=== PATIENT | female | born 1965 | race Two or more races ===

== ENCOUNTER 2020-04-08 00:31 | Inpatient (IN) | payer SELFPAY ==
[~2020-04-08] VITALS: Ht 157.5 cm; Wt 104.9 kg
[2020-04-08 04:14] LABS: Basophils # (auto) 0 10 ^3/uL (0-0.2); Basophils % (auto) 0.3 % (0.0-2.0); Eosinophils # (auto) 0 10 ^3/uL (0-0.8); Eosinophils % (auto) 0.4 % (0.0-7.0); Hematocrit 43.4 % (36.0-46.0); Hemoglobin 14.5 g/dL (12.2-16.2); Lymphocytes # (auto) 0.9 10 ^3/uL (0.4-5.4); Lymphocytes % (auto) 6.8 % (10.0-50.0); Mean Corpuscular Hemoglobin 30.9 pg (28.0-32.0); Mean Corpuscular Hgb Conc. 33.3 g/dL (32.0-36.0); Mean Corpuscular Volume 92.6 fL (80.0-100.0); Monocytes # (auto) 0.7 10 ^3/uL (0-1.3); Neutrophils # (auto) 10.9 10 ^3/uL (1.6-8.6); Neutrophils % (auto) 86.5 % (37.0-80.0); Platelet Count (auto) 335 10^3/uL (140-450); Red Blood Cells 4.69 10^6/uL (4.0-5.20); Red Cell Distribution Width 13.2 % (11.8-14.3); White Blood Cell 12.5 10^3/uL (4.4-10.8)
[2020-04-08 04:31] LABS: Calcium 9.2 mg/dL (8.5-10.1); Potassium 3.9 mmol/L (3.5-5.1)
[2020-04-08] MEDS ORDERED: methylPREDNISolone SOD SUCC 125 MG/2 ML VL ONE (04:36)
[2020-04-08 04:37] LABS: Albumin 3.9 g/dL (3.4-5.0); BUN/Creatinine Ratio 10.2; Bilirubin, Total 0.5 mg/dL (0.2-1.0)
[2020-04-08] MEDS ORDERED: IPRATROPIUM BROM 0.5 MG/2.5ML INH SOL NEB ONE (04:45)
[2020-04-08] MEDS ORDERED: methylPREDNISolone SOD SUCC 125 MG/2 ML VL IV ONE ×2 (04:45→15:45)
[2020-04-08] MEDS ORDERED: ALBUTEROL SULF 2.5 MG/0.5ML(0.5%) NEB SOLN NEB ONE (04:45)
[2020-04-08] MEDS ORDERED: AZITHROMYCIN 500MG/ 250ML 250 ML IV ONE (07:30)
[2020-04-08] MEDS ORDERED: cefTRIAXone 1GM/50ML D5W 50 ML IV ONE (07:30)
[2020-04-08] MEDS ORDERED: MAGNESIUM SULFATE 1GM/100ML 100 ML IV ONE (07:30)
[2020-04-08] MEDS ORDERED: IOHEXOL 350 MG/ML 100ML IJ ONE (08:13)
[2020-04-08] MEDS ORDERED: NITROGLYCERIN 0.4 MG SL TAB SL PRN (10:00)
[2020-04-08] MEDS ORDERED: HYDROcodone-ACET 5/325MG TAB PO PRN (10:00)
[2020-04-08] MEDS ORDERED: MORPHINE SULF INJ 2 MG/ML SYRINGE 1ML IV PRN ×2 (10:00)
[2020-04-08] MEDS ORDERED: IPRATROPIUM BROM 0.5 MG/2.5ML INH SOL NEB PRN (10:15)
[2020-04-08] MEDS ORDERED: ALBUTEROL SULF 2.5 MG/0.5ML(0.5%) NEB SOLN NEB PRN (10:15)
[2020-04-08] MEDS ORDERED: ACET1CAP14 PO (10:36)
[2020-04-08] MEDS: FAMOTIDINE 20 MG TAB PO SCH (11:10)
[2020-04-08] MEDS: BUDESONIDE (INHALATION) 0.5 MG/2 ML NEB NEB SCH ×2 (11:28→21:32)
[2020-04-08] MEDS: IPRATROPIUM BROM 0.5 MG/2.5ML INH SOL NEB SCH ×2 (11:28→19:21)
[2020-04-08] MEDS: ALBUTEROL SULF 2.5 MG/0.5ML(0.5%) NEB SOLN NEB SCH ×2 (11:29→19:21)
[2020-04-08] MEDS ORDERED: SODIUM CHLORIDE 0.9% 1,000 ML IV ONE (13:15)
--- NOTE | 2020-04-08 21:55 | NUR ---
Telemetry admit from ER MEHRAN SAWYER admitted to Telemetry unit after NO SBAR received. Patient oriented to GENNA JUNIOR RN primary RN,[facility] ROOM [facility] and unit policies regarding patient care and visiting hours. Patient now on continuous telemetry monitoring, tele box #66 and telemetry reading on arrival to unit is SINUS TACH 108.BED LOCKED IN THE LOWEST POSITION, SIDE RAILS UP X2, CALL LIGHT WITHIN REACH. Patient placed on bedside oxygen 3L weighed by bedscale and encouraged to call if they need something. All questions and concerns addressed, patient verbalized understanding. ADMISSION VITALS 130/81 HR110 18RR 93% ON 3L OXYGEN 98.6 ORAL TEMPERATURE. NO DISTRESS/ SOB AT THIS TIME.
--- NOTE | 2020-04-08 22:00 | NUR ---
PATIENT COMPLAINS OF 3/10 THROBBING HEADACHE. TYLENOL ADMINISTERED PER DR ORDERS.
[2020-04-08] MEDS: ACETAMINOPHEN 500 MG TAB PO PRN (22:04)
[2020-04-08 23:23] VITALS: BP 130/81
[2020-04-09 04:15] VITALS: BP 174/87
[2020-04-09 04:20] VITALS: BP 119/64
--- NOTE | 2020-04-09 06:00 | NUR ---
HEART RATE 130 BPM, UPON ASSESSING PATIENT SHE IS WALKING AROUND HER ROOM WITH NO COMPLAINTS OF DISTRESS/SOB. ONCE RESTING IN BED HEART RATE BACK DOWN TO 105 BPM./
[2020-04-09 06:29] LABS: Basophils # (auto) 0 10 ^3/uL (0-0.2); Basophils % (auto) 0.1 % (0.0-2.0); Eosinophils # (auto) 0 10 ^3/uL (0-0.8); Hematocrit 40.2 % (36.0-46.0); Hemoglobin 13.5 g/dL (12.2-16.2); Lymphocytes % (auto) 5.2 % (10.0-50.0); Mean Corpuscular Hemoglobin 31.4 pg (28.0-32.0); Mean Corpuscular Hgb Conc. 33.5 g/dL (32.0-36.0); Mean Corpuscular Volume 93.7 fL (80.0-100.0); Monocytes # (auto) 0.9 10 ^3/uL (0-1.3); Monocytes % (auto) 4.7 % (0.0-12.0); Neutrophils # (auto) 16.7 10 ^3/uL (1.6-8.6); Platelet Count (auto) 315 10^3/uL (140-450); Red Blood Cells 4.29 10^6/uL (4.0-5.20); Red Cell Distribution Width 13.5 % (11.8-14.3); White Blood Cell 18.6 10^3/uL (4.4-10.8)
[2020-04-09 06:34] LABS: BUN/Creatinine Ratio 26.2; Calcium 9.1 mg/dL (8.5-10.1)
[2020-04-09] MEDS: IPRATROPIUM BROM 0.5 MG/2.5ML INH SOL NEB SCH ×4 (06:45→22:51)
[2020-04-09] MEDS: ALBUTEROL SULF 2.5 MG/0.5ML(0.5%) NEB SOLN NEB SCH ×4 (06:45→22:51)
--- NOTE | 2020-04-09 07:45 | NUR ---
CLOSING NOTE CARE ENDORSED TO DAY SHIFT RN. PATIENT RESTING IN THE LOW FOWLERS POSITION, NO SIGNS OF SOB/ DISTRESS AT THIS TIME.
[2020-04-09 09:00] VITALS: BP 110/61
[2020-04-09] MEDS: FAMOTIDINE 20 MG TAB PO SCH (09:31)
[2020-04-09] MEDS: ACETAMINOPHEN 500 MG TAB PO PRN ×3 (09:32→20:16)
[2020-04-09] MEDS ORDERED: methylPREDNISolone SOD SUCC 125 MG/2 ML VL IV SCH (10:00)
[2020-04-09] MEDS: cefTRIAXone 1GM/50ML D5W 50 ML IV SCH (10:41)
[2020-04-09] MEDS: BUDESONIDE (INHALATION) 0.5 MG/2 ML NEB NEB SCH ×2 (10:54→18:44)
[2020-04-09] MEDS: AZITHROMYCIN 500MG/ 250ML 250 ML IV SCH (11:38)
[2020-04-09 13:00] VITALS: BP 97/69
[2020-04-09 17:00] VITALS: BP 117/61
--- NOTE | 2020-04-09 18:59 | NUR ---
Patient's breathing non labored. Tolerated IV antibiotics. Complained of a headache and was given Tylenol and tolerated medications. Encouraged to continue coughing and deep breathing. Patient has no further complaints.
--- NOTE | 2020-04-09 19:40 | NUR ---
Opening Shift Note Assumed care of patient, awake and alert. Patient out of bed in the bathroom. No S/S of distress/SOB or pain. Patient on 4L NC. Safety measures maintained by keeping the bed locked in lowest position, 2 side rails up, personal items and call light within reach. Instructed on POC and to call for assist PRN, will continue to monitor for changes Q1hr and PRN.
[2020-04-09] MEDS: methylPREDNISolone SOD SUCC 40 MG/ML VL IV SCH (21:38)
--- NOTE | 2020-04-09 21:47 | NUR ---
Sputum culture sent to lab
[2020-04-09 22:00] VITALS: BP 108/72
--- NOTE | 2020-04-10 04:45 | NUR ---
Rapid Influenza and urine sent to lab.
[2020-04-10 05:37] VITALS: BP 118/68
[2020-04-10 05:48] LABS: Urine Bacteria FEW /hpf (None Seen); Urine Blood Negative /uL (Negative); Urine Mucus FEW (None Seen); Urine WBC 14 /hpf (0 - 5)
[2020-04-10 09:00] VITALS: BP 99/66
[2020-04-10] MEDS: BUDESONIDE (INHALATION) 0.5 MG/2 ML NEB NEB SCH ×2 (09:11→19:17)
[2020-04-10] MEDS: cefTRIAXone 1GM/50ML D5W 50 ML IV SCH (09:33)
[2020-04-10] MEDS: FAMOTIDINE 20 MG TAB PO SCH (10:07)
[2020-04-10] MEDS: AZITHROMYCIN 500MG/ 250ML 250 ML IV SCH (10:07)
[2020-04-10] MEDS: methylPREDNISolone SOD SUCC 40 MG/ML VL IV SCH ×2 (10:08→22:28)
[2020-04-10 12:00] VITALS: BP 97/57
[2020-04-10] MEDS: IPRATROPIUM BROM 0.5 MG/2.5ML INH SOL NEB SCH ×2 (12:37→19:18)
[2020-04-10] MEDS: ALBUTEROL SULF 2.5 MG/0.5ML(0.5%) NEB SOLN NEB SCH ×2 (12:37→19:17)
--- NOTE | 2020-04-10 16:55 | NUR ---
IV removal IV DC'd with sterile technique, catheter fully intact. Pressure dressing applied to site. Patient tolerated procedure well. Discharged with aftercare instructions per MD. NOTE: PATIENT IV SITE NOTED TO BE RED AND STARTING TO SWELL. IV insertion IV access obtained, via clean sterile technique by inserting 22 gauge catheter at left hand after 1 attempt. IV secured properly. No trauma to site. Patient tolerated procedure well.
[2020-04-10 17:03] VITALS: BP 100/59
--- NOTE | 2020-04-10 19:45 | NUR ---
Opening Shift Note Assumed care of patient, awake and alert. Patient sitting up in bed. No S/S of distress/SOB or pain. Patient on 4L NC. Safety measures maintained by keeping the bed locked in lowest position, 2 side rails up, personal items and call light within reach. Instructed on POC and to call for assist PRN, will continue to monitor for changes Q1hr and PRN.
[2020-04-10 22:00] VITALS: BP 105/61
[2020-04-11] MEDS: ALBUTEROL SULF 2.5 MG/0.5ML(0.5%) NEB SOLN NEB SCH ×3 (06:00→19:23)
[2020-04-11] MEDS: IPRATROPIUM BROM 0.5 MG/2.5ML INH SOL NEB SCH ×3 (06:00→19:23)
[2020-04-11 08:49] VITALS: BP 97/58
[2020-04-11] MEDS: cefTRIAXone 1GM/50ML D5W 50 ML IV SCH (09:00)
[2020-04-11] MEDS: FAMOTIDINE 20 MG TAB PO SCH (09:37)
[2020-04-11] MEDS: AZITHROMYCIN 500MG/ 250ML 250 ML IV SCH (09:37)
[2020-04-11] MEDS: methylPREDNISolone SOD SUCC 40 MG/ML VL IV SCH ×2 (09:37→22:07)
[2020-04-11] MEDS: BUDESONIDE (INHALATION) 0.5 MG/2 ML NEB NEB SCH ×2 (10:00→19:23)
--- NOTE | 2020-04-11 10:20 | NUR ---
Dr. Thayer at nurse station MD instructed this RN to place order for ABG on room air for home oxygen. Will implement new order and notify primary RN Colby.
--- NOTE | 2020-04-11 12:17 | NUR ---
Nutrition Assessment Notes Please refer to link for full assessment notes. Est Energy needs: 5265-2231 kcals (12-15 kcal/kgBW) Est Protein needs: 87-109 gms/day (0.8-1.0 gm/kgBW) Will continue to monitor and reassess prn. Addendum: 04/11/20 at [address] Amended: Links added.
[2020-04-11 13:00] VITALS: BP 101/58
--- NOTE | 2020-04-11 15:00 | NUR ---
SPECIMEN FOR IN HOUSE COVID OBTAINED AND BROUGHT TO THE LAB.
[2020-04-11 17:09] VITALS: BP 97/58
--- NOTE | 2020-04-11 17:13 | NUR ---
Assessment Patient is a 54-year-old female who is alert and oriented. Prior to admission patient lived home with family and functioned independently. Prior to admission patient could care for his own ADL's. Per Patient she will return home to her prior living arrangements post discharge and family will transport patient at anytime. Advised patient she will be refer to Zeke with [facility] who assist with [employer]. Per patient Zeke has been in contact with her and will provide him with the documentation that he has requested. Informed patient she has the right to participate in all discharge planning. Patient does not have an advance directive. Patient has been provided with an advanced directive. Patient verbalized understanding and agrees to discharge plan. Addendum: 04/11/20 at 1718 by EVANS JO Amended: Links added.
[2020-04-11 22:00] VITALS: BP 92/52
--- NOTE | 2020-04-12 04:56 | NUR ---
Sofiya Farrell. Requested cough medication for patient. Order verbalized and read back. See order history for order.
[2020-04-12 05:00] VITALS: BP 103/59
[2020-04-12] MEDS: guaiFENesin-DM 100/10mg/5ml SYR PO PRN ×3 (05:31→21:42)
[2020-04-12] MEDS: BUDESONIDE (INHALATION) 0.5 MG/2 ML NEB NEB SCH ×2 (06:46→19:45)
[2020-04-12] MEDS: ALBUTEROL SULF 2.5 MG/0.5ML(0.5%) NEB SOLN NEB SCH ×3 (06:46→19:45)
[2020-04-12] MEDS: IPRATROPIUM BROM 0.5 MG/2.5ML INH SOL NEB SCH ×3 (06:46→19:45)
--- NOTE | 2020-04-12 06:46 | NUR ---
Respiratory note: RECEIVED PATIENT ON 3L NC. PATIENT WAS IN NO RESPIRATORY DISTRESS. PATIENT WAS GIVEN TREATMENT AND PLACED BACK ON 3L NC. WILL CONTINUE TO MONITOR.
[2020-04-12] MEDS: cefTRIAXone 1GM/50ML D5W 50 ML IV SCH (08:37)
[2020-04-12 09:00] VITALS: BP 92/54
[2020-04-12] MEDS: AZITHROMYCIN 500MG/ 250ML 250 ML IV SCH (10:12)
[2020-04-12] MEDS: methylPREDNISolone SOD SUCC 40 MG/ML VL IV SCH ×2 (10:12→21:40)
[2020-04-12] MEDS: FAMOTIDINE 20 MG TAB PO SCH (10:12)
--- NOTE | 2020-04-12 10:50 | NUR ---
MD AT BEDSIDE DR. FLORES WAS IN TO SEE PATIENT AND MD RULED OUT PATIENT FOR COVID 19.
[2020-04-12 13:00] VITALS: BP 108/61
--- NOTE | 2020-04-12 13:16 | NUR ---
Respiratory note: Routine treatment. no respiratory distress noted. Will continue to monitor.
[2020-04-12 17:00] VITALS: BP 101/61
--- NOTE | 2020-04-12 17:30 | NUR ---
PATIENT CALLED AND WAS STATING THAT HER WILL BE COMING TO PICK HER UP. PATIENT STATED THAT THE O2 WILL BE DELIVERED AT THE [facility] AN AT HER HOME TODAY. FAXED PATIENT'S INFORMATION BEFORE AND WAS WAITING FOR THEM TO RESPOND. EXPLAINED TO PATIENT THAT THERE IS NO ORDER FOR DISCHARGE TODAY AND SHE WAS OKAY TO STAY OVERNIGHT AND WILL WAIT FOR MD TO DISCHARGE HER TOMORROW SHE NEEDED HER NEW PRESCRIPTIONS.
--- NOTE | 2020-04-12 19:00 | NUR ---
Opening Shift Note Assumed care of patient, awake and alert. No S/S of distress/SOB or pain. Instructed on POC and to call for assist PRN, will continue to monitor for changes Q1hr and PRN. Patient in the lowest possible position with the call light within reach and bed rails up x2.
[2020-04-12 20:00] VITALS: BP 97/57
[2020-04-12 22:00] VITALS: BP 97/57
[2020-04-13 05:00] VITALS: BP 105/60
[2020-04-13] MEDS: ALBUTEROL SULF 2.5 MG/0.5ML(0.5%) NEB SOLN NEB SCH ×2 (06:35→12:15)
[2020-04-13] MEDS: IPRATROPIUM BROM 0.5 MG/2.5ML INH SOL NEB SCH ×2 (06:36→12:15)
[2020-04-13 09:00] VITALS: BP 92/54
[2020-04-13] MEDS: cefTRIAXone 1GM/50ML D5W 50 ML IV SCH (09:49)
[2020-04-13] MEDS: FAMOTIDINE 20 MG TAB PO SCH (09:49)
[2020-04-13] MEDS: methylPREDNISolone SOD SUCC 40 MG/ML VL IV SCH (09:49)
[2020-04-13] MEDS: BUDESONIDE (INHALATION) 0.5 MG/2 ML NEB NEB SCH (12:14)
[2020-04-13 13:00] VITALS: BP 99/55
[2020-04-13 14:18] VITALS: BP 99/55
[2020-04-13] MEDS: AZITHROMYCIN 500MG/ 250ML 250 ML IV SCH (15:26)
--- NOTE | 2020-04-13 15:44 | NUR ---
DISCHARGE NOTE PATIENT ALERT AND ORIENTED X4 ALL DISCHARGE INSTRUCTIONS GIVEN ALL QUESTIONS AND CONCERNS ADDRESSED/ANSWERED PT VERBALIZED UNDERSTANDING. IV REMOVED CATHETER INTACT PRESSURE DRESSING APPLIED PT TOLERATED WELL. TELE BOX REMOVED CLEANED AND SENT TO ICU VIA THE [employer], [employer] COUNTER ASSOCIATE [employer] NOTIFIED.ASSISTED PATIENT TO PERSONAL VEHICLE USING A WHEELCHAIR WITH OXYGEN TANK. PATIENT DENIES ALL PAIN SOB AND DISTRESS.
--- NOTE | 2020-04-14 09:25 | NUR ---
[employer] Production Weekend Received a page from SANJIV Bowman advising me patient has orders for home oxygen and patient has no insurance. Informed SANJIV Bowman patient will be responsible for the oxygen. SANJIV Bowman transfer me to patient room. Spoke to patient advising her [facility] can assist with self pay and she will be responsible for the 200dlls per month and will need a credit card to be given [facility]. Patient verbalize understanding d/c plan. fax and phone number was given to SANJIV Bowman for [employer]. Placed call to Jaki and provided her with patient information. Per Jaki with [employer] they will contact patient for payment method. Informed SANJIV Lyons will contact patient and arranged medical equipment with patient.
== END 2020-04-13 15:43 | disposition home or self-care (01) | DRG 193 ==
LOC: ER 00:33 → TELE 00:34 → TELE-WESTW 21:45
PROVIDERS: ADMIT Nurse Practitioner Acute Care; ATTEND Internal Medicine Nephrology
DX: J18.9 Pneumonia, unspecified organism (principal); J96.01 Acute respiratory failure with hypoxia; J44.1 Chronic obstructive pulmonary disease with (acute) exacerbation; J44.0 Chronic obstructive pulmonary disease with (acute) lower respiratory infection; Z68.41 Body mass index [BMI] 40.0-44.9, adult; J20.9 Acute bronchitis, unspecified; Z20.828 Contact with and (suspected) exposure to other viral communicable diseases; Z87.09 Personal history of other diseases of the respiratory system; F17.210 Nicotine dependence, cigarettes, uncomplicated; E66.01 Morbid (severe) obesity due to excess calories
CPT/HCPCS: 36415; 36600; 71045; 71250; 80048; 80053; 81001; 81025; 82805; 83605; 83880; 85025; 85379; 87040; 87070; 87205; 87426; 87804; 93005; 93306; 93970; 94640; 96361; 96365; 96367; 96368; 96375; 96376; 99291; G0378; J0696